=== PATIENT | female | born 1955 | race Caucasian/White ===

== ENCOUNTER 2016-10-14 19:56 | Emergency (ER) | payer MEDICAID ==
[~2016-10-14] VITALS: Ht 170.2 cm; Wt 62.0 kg
[2016-10-14] MEDS ORDERED: AMLO-512 PO (19:59)
[2016-10-14] MEDS ORDERED: LEVE500T53 PO (19:59)
[2016-10-14] MEDS ORDERED: LOSA50TA37 PO (19:59)
[2016-10-14] MEDS ORDERED: HYDROCODONE/ACETAMINOPHEN 5-325 MG TABLET PO ONE (20:30)
[2016-10-14 21:51] VITALS: BP 132/68
== END 2016-10-14 22:23 | disposition home or self-care (01) ==
LOC: EMS 19:58
DX: S22.32XA Fracture of one rib, left side, initial encounter for closed fracture (principal); I10 Essential (primary) hypertension; F12.90 Cannabis use, unspecified, uncomplicated; W19.XXXA Unspecified fall, initial encounter; Y93.E1 Activity, personal bathing and showering; Y92.89 Other specified places as the place of occurrence of the external cause; Y99.8 Other external cause status
CPT/HCPCS: 71101; 99283; 99284